=== PATIENT | female | born 1980 | race Caucasian/White ===

== ENCOUNTER 2018-08-28 00:32 | Emergency (ER) | payer SELFPAY ==
[~2018-08-28] VITALS: Ht 167.6 cm; Wt 86.2 kg
[2018-08-28 00:45] VITALS: BP_SYST 162
[2018-08-28] MEDS ORDERED: LORazepam 2 MG/ML VIAL (FOR ER USE) IVP ONE (01:15)
[2018-08-28] MEDS: NACL 0.9% 1,000 ML IV ONE (01:17)
[2018-08-28 01:45] LABS: CALCIUM 8.7 mg/dL (8.4-11.0); CREATININE 0.62 mg/dL (0.55-1.30); POTASSIUM 3.9 mmol/L (3.5-5.1)
[2018-08-28 01:50] LABS: INR 0.9 (0.8-1.2); PROTHROMBIN TIME 9.5 SECS (9.5-12.5)
[2018-08-28 01:57] LABS: ALBUMIN 3.2 g/dL (3.4-4.8); TOTAL BILIRUBIN 0.1 mg/dL (0.0-1.0)
[2018-08-28 02:16] LABS: BASOPHILS % (AUTO) 0.5 % (0.0-2.0); EOSINOPHILS # (AUTO) 0.1 K/uL (0.0-0.4); EOSINOPHILS % (AUTO) 0.9 % (0.0-4.0); HEMATOCRIT 34.9 % (36-48); HEMOGLOBIN 11.7 g/dL (12.0-16.0); LYMPHOCYTES # (AUTO) 2.7 K/uL (1.0-5.5); LYMPHOCYTES % (AUTO) 37.6 % (20.5-51.5); MEAN CORPUSCULAR HEMOGLOBIN 30 pg (27-31); MEAN CORPUSCULAR HGB CONC 34 % (32-36); MEAN CORPUSCULAR VOLUME 90 fL (79.0-98.0); MONOCYTES # (AUTO) 0.6 K/uL (0.0-1.0); MONOCYTES % (AUTO) 8.8 % (1.7-9.3); NEUTROPHILS # (AUTO) 3.7 K/uL (1.8-7.7); NEUTROPHILS % (AUTO) 52.2 % (40.0-70.0); PLATELET COUNT (AUTO) 336 K/uL (130-430); RED BLOOD CELL COUNT(AUTO) 3.89 MIL/uL (4.2-6.2); RED CELL DISTRIBUTION WIDTH 12.6 % (9.0-15.0); WHITE BLOOD COUNT (AUTO) 7.1 K/uL (4.8-10.8)
[2018-08-28 03:03] VITALS: BP_SYST 145
== END 2018-08-28 03:03 | disposition home or self-care (01) ==
LOC: SED 00:32
DX: N92.0 Excessive and frequent menstruation with regular cycle (principal); N93.9 Abnormal uterine and vaginal bleeding, unspecified; F41.9 Anxiety disorder, unspecified; R03.0 Elevated blood-pressure reading, without diagnosis of hypertension
CPT/HCPCS: 36415; 76830; 76857; 80053; 84702; 85025; 85610; 85730; 86901; 99284; J7030; 96360

== ENCOUNTER 2018-08-30 06:18 | Inpatient (IN) | payer MEDICAID ==
[2018-08-30] VITALS (11 sets, daily range): BP systolic 85–115
[~2018-08-30] VITALS: Ht 167.6 cm; Wt 82.6 kg
--- NOTE | 2018-08-30 06:20 | NUR ---
Patient to ER bed 7 to gown for evaluation. Side rails up.
--- NOTE | 2018-08-30 06:25 | NUR ---
Pt wheeled into ED c/o vaginal bleeding. Pt was seen here a few nights ago for similar issue. Pt was prescribed Premarin but was unable to get prescription due to medication being expensive. Pt states she feels really weak and states "this is not my period." Pt is pale and diaphoretic. Pt was placed on child monitor. No other injuries/complaints per patient or noted.
--- NOTE | 2018-08-30 06:26 | NUR ---
ER Dr. Vinson at bedside examining patient.
[2018-08-30] MEDS ORDERED: NACL 0.9% 1,000 ML IV ONE ×3 (06:45→07:15)
[2018-08-30 06:58] LABS: BASOPHILS % (AUTO) 0.3 % (0.0-2.0); EOSINOPHILS # (AUTO) 0.1 K/uL (0.0-0.4); EOSINOPHILS % (AUTO) 0.7 % (0.0-4.0); HEMATOCRIT 23.2 % (36-48); HEMOGLOBIN 7.7 g/dL (12.0-16.0); LYMPHOCYTES # (AUTO) 3.4 K/uL (1.0-5.5); LYMPHOCYTES % (AUTO) 39.2 % (20.5-51.5); MEAN CORPUSCULAR HEMOGLOBIN 30 pg (27-31); MEAN CORPUSCULAR HGB CONC 33 % (32-36); MEAN CORPUSCULAR VOLUME 90 fL (79.0-98.0); MONOCYTES # (AUTO) 0.7 K/uL (0.0-1.0); MONOCYTES % (AUTO) 7.8 % (1.7-9.3); NEUTROPHILS # (AUTO) 4.5 K/uL (1.8-7.7); PLATELET COUNT (AUTO) 301 K/uL (130-430); RED BLOOD CELL COUNT(AUTO) 2.58 MIL/uL (4.2-6.2); RED CELL DISTRIBUTION WIDTH 12.6 % (9.0-15.0); WHITE BLOOD COUNT (AUTO) 8.6 K/uL (4.8-10.8)
--- NOTE | 2018-08-30 07:01 | NUR ---
Pt verbalized she does not take any prescribed medications at the moment.
[2018-08-30 07:08] LABS: CALCIUM 8.4 mg/dL (8.4-11.0); CREATININE 0.82 mg/dL (0.55-1.30); POTASSIUM 3.6 mmol/L (3.5-5.1)
[2018-08-30 07:10] LABS: INR 0.9 (0.8-1.2); PROTHROMBIN TIME 9.5 SECS (9.5-12.5)
[2018-08-30 07:13] LABS: ALBUMIN 2.9 g/dL (3.4-4.8); TOTAL BILIRUBIN 0.3 mg/dL (0.0-1.0)
[2018-08-30] MEDS ORDERED: ACETAMINOPHEN 500 MG TABLET PO ONE (08:00)
[2018-08-30] MEDS ORDERED: DIPHENHYDRAMINE HCL 25 MG CAPSULE PO ONE (08:00)
--- NOTE | 2018-08-30 08:19 | NUR ---
ADMISSION NOTE Received patient from ER via milo, received report from MILA EUBANKS. Patient admitted with diagnosis of VAGINAL BLEEDING. Patient oriented to hospital routine, call light, toileting and safety-patient verbalized understanding. Addendum: 08/30/18 at 0830 by Joey Coleman RN ADMIT TIME 0830
[2018-08-30] MEDS ORDERED: NORETHINDRONE ACETATE 5 MG TABLET PO ONE (08:30)
--- NOTE | 2018-08-30 08:38 | NUR ---
Patient will be admitted to care of DR KO. Admitted to MED SURGE unit. Will go to room 124B. Belongings list completed. Summary report printed. Report given at bedside. Transfered to [facility]. IV present no sign or symptom of infiltration.
[2018-08-30] MEDS: LR 1,000 ML IV SCH ×2 (08:54→16:00)
--- NOTE | 2018-08-30 09:00 | NUR ---
OPENING NOTE patient is resting in bed, a&oX4, assessment completed, educated electrical controls designer light system and plan of care, patient verbalized understanding, patient complaining of low back pain, no signs of respiratory distress, IV fluids started per MD order, educated patient on the need for blood transfusion for today, patient verbalized understanding, IV line clean with no signs of infiltration, bed in the lowest position, three side rails up, call light within reach, bed alarm on, fall/safety precautions in place.
--- NOTE | 2018-08-30 09:51 | NUR ---
BT INITIATION: Consent signed per patient agreeing to administration of blood. Blood has been type and crossmatched. Blood sent from blood bank. Information on unit of blood checked against patient wristband at bedside by two nurses. All information matches. Patient or responsible alliance party informed of potential complications associated with blood transfusion. Informed of possible transfusion reaction symptoms. Aware of need to notify nurse at once of itching, shortness of breath, flushing, feeling of impending doom, or other symptoms not previously present. Vital signs taken within 5 minutes prior to initiation of transfusion. RN will remain with patient for first 15 minutes of transfusion at which time vital signs will be re-assessed.
--- NOTE | 2018-08-30 10:35 | NUR ---
PATIENT OFF UNIT heading to the OR.
[2018-08-30] MEDS ORDERED: MIDAZOLAM HCL 5 MG/5 ML VIAL IVP ONE (10:45)
[2018-08-30] MEDS ORDERED: DOXYCYCLINE HYCLATE 100 MG VIAL IV ONE (10:45)
[2018-08-30] MEDS ORDERED: IBUP-1971 PO (11:18)
[2018-08-30] MEDS ORDERED: NORG1TAB10 PO (11:20)
[2018-08-30] MEDS ORDERED: KETOROLAC TROMETHAMINE 30 MG VIAL IM PRN (11:30)
[2018-08-30] MEDS ORDERED: ONDANSETRON HCL 4 MG/2 ML VIAL IVP PRN ×2 (11:30→12:00)
[2018-08-30] MEDS ORDERED: fentaNYL CITRATE/PF 100 MCG/2 ML AMP IVP PRN ×2 (12:00)
[2018-08-30] MEDS ORDERED: HYDROmorphone 2 MG/ML VIAL IVP ONE (12:15)
[2018-08-30] MEDS ORDERED: MIDAZOLAM HCL 2 MG/2 ML VIAL (VERSED) ONE (12:24)
[2018-08-30] MEDS ORDERED: ONDANSETRON HCL 4 MG/2 ML VIAL ONE (12:24)
--- NOTE | 2018-08-30 13:15 | NUR ---
PATIENT BACK ON UNIT FROM THE OR, RECEIVING HER SECOND UNIT OF PRBCS.
--- NOTE | 2018-08-30 14:55 | NUR ---
Blood transfusion done patient is resting in bed, no pain reported, no signs of respiratory distress, will continue to monitor, fall/safety precautions in place.
--- NOTE | 2018-08-30 16:28 | NUR ---
rounds patient is resting in bed, eyes closed, breathing easy and nonlabored, no other needs addressed at this time, fall/safety precautions in place.
--- NOTE | 2018-08-30 18:48 | NUR ---
closing note patient is resting in bed, family at the bedside, patient demonstrated use of incentive spirometer and went up to 1999, no other needs addressed at this time, began discharge education on patient, patient states she still feels weak, will endorse report to noc shift nurse about completing discharge once patient feels more stable to go home tonight, fall/safety precautions in place.
--- NOTE | 2018-08-30 20:44 | NUR ---
DISCHARGE Pt AAOx4, VSS, pt family at bedside. Discharged home. IV L. AC discontinued, catheter tip intact, no bleeding noted. Pt denies any pain, dizziness or bleeding. Pt instructed to call 911 if fever, sob, dizziness, bleeding. Verbalized understanding. All belongings with pt.
== END 2018-08-30 20:40 | disposition home or self-care (01) | DRG 513 ==
LOC: SED 06:18 → SMU 07:54
PROVIDERS: ADMIT Obstetrics & Gynecology; ATTEND Obstetrics & Gynecology
PROC: 0UB98ZZ Excision of Uterus, Via Natural or Artificial Opening Endoscopic (ICD-10-PCS; 2018-08-30)
PROC: 0UDB8ZZ Extraction of Endometrium, Via Natural or Artificial Opening Endoscopic (ICD-10-PCS; 2018-08-30)
PROC: 30233N1 Transfusion of Nonautologous Red Blood Cells into Peripheral Vein, Percutaneous Approach (ICD-10-PCS; principal; 2018-08-30 11:00)
DX: N93.9 Abnormal uterine and vaginal bleeding, unspecified (principal); E87.1 Hypo-osmolality and hyponatremia; D64.9 Anemia, unspecified; N84.0 Polyp of corpus uteri; E86.1 Hypovolemia; F41.9 Anxiety disorder, unspecified
CPT/HCPCS: 36415; 80053; 84703; 85025; 85610-TC; 85730-TC; 86886; 86900; 86901; 86920; 87081; 88305; 94010; 96360; 99285; J2250; J2405; J3465; J3490; J7030; J7050; J7120; P9021; Q0163

== ENCOUNTER 2018-11-01 00:35 | Inpatient (IN) | payer MEDICAID ==
[~2018-11-01] VITALS: Ht 167.6 cm; Wt 86.6 kg
[2018-11-01] VITALS (7 sets, daily range): BP systolic 113–128
[~2018-11-01 00:35] MED LIST: IBUP-1971 PO; NORG1TAB10 PO
--- NOTE | 2018-11-01 00:40 | NUR ---
Patient to ER bed 02 to gown for evaluation. Side rails up. Report given to RAIMUNDO Hi.
[2018-11-01] MEDS ORDERED: NACL 0.9% 1,000 ML IV ONE ×2 (01:02→04:00)
--- NOTE | 2018-11-01 01:05 | NUR ---
Dr. Vinson bedside for Pt eval
--- NOTE | 2018-11-01 01:10 | NUR ---
Pt BIB family to ED C/O lower abdominal pain associated with nausea, diarrhea and dysuria that started on Tuesday. The Pt reports that she has also had felt more thirsty than usual. She reports that she has a history of D & C procedure 2 months ago but didn't not follow up as directed. She reports that she tried taking Miralax thinking that she was constipated with no relief. Last bowel movement was 2 days ago. She reports that she feels like her vagina is swollen and is worried that a tampon/flex ring is stuck inside. Last menstrual period was last week and was heavier than normal. No other injuries and or complaints noted. VSS no s/s of acute distress. Resting on gurney with rails up
[2018-11-01 01:15] LABS: BILIRUBIN,URINE NEGATIVE (NEGATIVE); CLARITY/URINE CLEAR (CLEAR); COLOR,URINE YELLOW (YELLOW); GLUCOSE,URINE NEGATIVE (NEGATIVE); KETONES,URINE TRACE (NEGATIVE); LEUKOCYTE ESTERASE ,URINE 1+ (NEGATIVE); NITRITE, URINE NEGATIVE (NEGATIVE); PROTEIN URINE NEGATIVE (NEGATIVE); UROBILINOGEN,URINE 0.2 (0.2-1.0)
[2018-11-01] MEDS ORDERED: ONDANSETRON HCL 4 MG/2 ML VIAL IVP ONE (01:15)
[2018-11-01] MEDS ORDERED: MORPHINE 4 MG/ML INJ. SYRINGE IVP ONE (01:15)
[2018-11-01] MEDS ORDERED: DIPHENHYDRAMINE INJ 50 MG/ML VIAL IVP ONE (01:15)
--- NOTE | 2018-11-01 01:15 | NUR ---
Pt taken to Radiology in stable condition
[2018-11-01 01:18] LABS: BLOOD, URINE TRACE (NEGATIVE)
[2018-11-01 01:20] LABS: BACTERIA,URINE FEW /HPF (None Seen)
--- NOTE | 2018-11-01 01:30 | NUR ---
Pt back from Radiology well tolerated
[2018-11-01 01:41] LABS: BASOPHILS # (AUTO) 0.1 K/uL (0.0-0.2); BASOPHILS % (AUTO) 0.4 % (0.0-2.0); EOSINOPHILS # (AUTO) 0.1 K/uL (0.0-0.4); EOSINOPHILS % (AUTO) 0.4 % (0.0-4.0); HEMATOCRIT 27.7 % (36-48); HEMOGLOBIN 8.7 g/dL (12.0-16.0); LYMPHOCYTES # (AUTO) 1.5 K/uL (1.0-5.5); LYMPHOCYTES % (AUTO) 11.6 % (20.5-51.5); MEAN CORPUSCULAR HEMOGLOBIN 24 pg (27-31); MEAN CORPUSCULAR HGB CONC 32 % (32-36); MEAN CORPUSCULAR VOLUME 76 fL (79.0-98.0); MONOCYTES # (AUTO) 0.9 K/uL (0.0-1.0); MONOCYTES % (AUTO) 6.4 % (1.7-9.3); NEUTROPHILS # (AUTO) 10.8 K/uL (1.8-7.7); NEUTROPHILS % (AUTO) 81.2 % (40.0-70.0); PLATELET COUNT (AUTO) 440 K/uL (130-430); RED BLOOD CELL COUNT(AUTO) 3.67 MIL/uL (4.2-6.2); RED CELL DISTRIBUTION WIDTH 17.6 % (9.0-15.0); WHITE BLOOD COUNT (AUTO) 13.3 K/uL (4.8-10.8)
[2018-11-01 01:56] LABS: CREATININE 0.69 mg/dL (0.55-1.30); POTASSIUM 3.9 mmol/L (3.5-5.1)
[2018-11-01 02:01] LABS: ALBUMIN 3.2 g/dL (3.4-4.8); TOTAL BILIRUBIN 0.5 mg/dL (0.0-1.0)
--- NOTE | 2018-11-01 02:30 | NUR ---
Pt put on IV Antibiotics therapy, blood cx's sent prior
[2018-11-01] MEDS ORDERED: ALPRAZolam 0.25 MG TABLET PO ONE (03:00)
[2018-11-01] MEDS ORDERED: cefTRIAXone 1 GM IVPB PREMIX 50 ML IV ONE (03:15)
[2018-11-01] MEDS ORDERED: metroNIDAZOLE 500 MG TABLET PO ONE (03:15)
--- NOTE | 2018-11-01 03:22 | NUR ---
End of life care decisions discussed with patient by Dr. Vinson. Opportunity for questions and concerns addressed. Patient's code status is FULL CODE paperwork completed and placed in chart.
[2018-11-01] MEDS ORDERED: CIPROFLOXACIN LACT 400 MG/D5W 200 ML IV ONE (03:30)
[2018-11-01] MEDS ORDERED: ONDANSETRON HCL 4 MG/2 ML VIAL IVP PRN ×2 (03:45→09:45)
[2018-11-01] MEDS ORDERED: MORPHINE 2 MG/ML INJ. SYRINGE IVP PRN (03:45)
--- NOTE | 2018-11-01 04:06 | NUR ---
Patient will be admitted to care of Dr. Acharya. Admitted to Medsurg unit. Will go to room 114. Belongings list completed. Summary report printed. Report will be given at bedside.
--- NOTE | 2018-11-01 04:06 | NUR ---
ADMISSION NOTE Received patient from ER via rdelano under the care of Dr. Acharya. Patient admitted with diagnosis of Abdominal Pain. Patient is awake, alert, oriented X 4. Patient oriented to hospital room, call light, toileting, pain management and safety-teach back done. Patient informed that her nurse will be Kemar and that her room number is 114B. Call light within reach. Will continue to monitor patient condition.
--- NOTE | 2018-11-01 04:54 | NUR ---
PAIN Patient complained of abdominal pain. PRN medication to be administered.
--- NOTE | 2018-11-01 05:46 | NUR ---
CONSULT REASON FOR CONSULT: ABD PAIN PERSON I SPOKE WITH: ANNALISA CONSULTING PHYSICIAN: DR. MORGAN MAINTENANCE SERVICE TECHNICIAN PHONE NUMBRE: [phone] ORDERING PHYSICIAN: DR. HECTOR
--- NOTE | 2018-11-01 06:40 | NUR ---
CLOSING NOTE Patient in bed sleeping at this time. No s/s of acute distress noted. Breathing even and unlabored. IVF infusing well. IV site patent, no signs of infiltration or infection noted. Bedside commode present at bedside. All needs met throughout shift. Fall and safety precautions maintained throughout shift. Will continue to monitor until patient care is endorsed to oncoming dayshift nurse.
--- NOTE | 2018-11-01 08:02 | NUR ---
OPENING NOTE patient resting in bed with eyes closed, patient easily arousable to name, patient denies any acute distress or pain, breathing is even and unlabored on room air, IVF infusing as ordered, educated patient on plan of care and call light system, will continue to monitor, safety precautions in place, call light within reach.
[2018-11-01] MEDS: MORPHINE 4 MG/ML INJ. SYRINGE IVP PRN ×3 (09:22→20:59)
[2018-11-01] MEDS ORDERED: METOCLOPRAMIDE HCL 10 MG/2 ML VIAL IVP PRN (09:45)
[2018-11-01] MEDS: metroNIDAZOLE 500 mg/NS 100 ML IV SCH ×3 (10:09→21:00)
--- NOTE | 2018-11-01 10:22 | NUR ---
CONSULTATION PAGED/CALLED Reason for Consultation: [] ABDOMINAL PAIN Person Who was Notified: [] NOREEN Consulting Physician: [] DR Chantelle HERRING WAREHOUSE SUPERVISOR FOR DR KEE Cooking Casing And Drying Supervisor Specialty: [] GI Ordering Physician: [] DR Daron HECTOR
[2018-11-01] MEDS: LEVOFLOXACIN 500 MG/D5W 100 ML IV SCH (11:11)
--- NOTE | 2018-11-01 12:30 | NUR ---
SPOKE TO DR NEVAEH SOLER MADE AWARE OF CT ABDOMEN RESULTS, ORDERED A TAP WATER ENEMA.
--- NOTE | 2018-11-01 13:07 | NUR ---
TAP WATER ENEMA DONE NO SIGNS OF STOOL AFTER HALF BAG OF ENEMA WAS DONE, PATIENT STATED SHE IS HAVING SIDE PAIN WHICH IS NOT ALLOWING HER TO PUSH, WILL NOTIFY MD.
--- NOTE | 2018-11-01 14:50 | NUR ---
PAGED DR HERRING FOR A SECOND TIME, AWAITING MD TO CALL BACK.
--- NOTE | 2018-11-01 15:10 | NUR ---
MD ROUNDS Dr. Gonzalez assessed patient in room, MD aware of tap water enema not helping much, MD stated to continue to monitor.
--- NOTE | 2018-11-01 16:45 | NUR ---
NOTES assisted patient to ambulate around the floor, patient still stating she is having pain in her right side, breathing is even and unlabored on room air, IVF infusing as ordered, mother at bedside, will continue to monitor, safety precautions in place, call light within reach.
[2018-11-01] MEDS: D5NS 1,000 ML IV SCH (17:30)
[2018-11-01] MEDS: METOCLOPRAMIDE HCL 10 MG/2 ML VIAL IVP SCH (17:30)
--- NOTE | 2018-11-01 18:54 | NUR ---
CLOSING NOTE patient ambulating around floor at this time, no acute distress or pain noted, patient had a loose bowel movement, breathing is even and unlabored on room air, IVF infusing as ordered, all needs were met throughout shift, patient resting in bed now, will endorse report to oncoming nurse, safety precautions in place, mother at bedside, call light within reach.
--- NOTE | 2018-11-01 19:41 | NUR ---
Opening notes Received report. Patient resting in bed. No signs of distress noted. Breathing even and unlabored. IV patent and intact, infusing fluids. Patient states my abdominal pain has gone down a bit. Patient wants water. Informed patient she is too have nothing by mouth. Patient verbalized understanding. Provided patient with mouth swabs to keep mouth from getting dry. No other needs. Call light with the patient. Safety precautions in place.
--- NOTE | 2018-11-01 22:30 | NUR ---
Sleeping Patient sleeping. No signs of distress noted. Breathing even and unlabored. IV patent and intact, infusing fluids. Safety precautions in place.
[2018-11-02] MEDS: METOCLOPRAMIDE HCL 10 MG/2 ML VIAL IVP SCH ×4 (00:19→17:56)
[2018-11-02] MEDS: KETOROLAC TROMETHAMINE 15 MG VIAL IM SCH ×5 (00:20→17:56)
--- NOTE | 2018-11-02 01:44 | NUR ---
Hygiene care Patient complains of being hot and sweating. Hygiene care and new gown provided. Patient states pain is tolerable right now. Ice chips provided. No other needs. Call light with the patient. Safety precautions in place.
--- NOTE | 2018-11-02 03:30 | NUR ---
Sleeping No signs of distress noted. Breathing even and unlabored. IV patent and intact. Safety precautions in place.
[2018-11-02] MEDS: D5NS 1,000 ML IV SCH ×3 (05:29→22:52)
--- NOTE | 2018-11-02 05:30 | NUR ---
IV infiltrated IV unable to flush and site is red. Will reinsert new IV. Scheduled medications not given at this time.
[2018-11-02] MEDS: metroNIDAZOLE 500 mg/NS 100 ML IV SCH ×3 (05:31→22:52)
[2018-11-02 06:27] LABS: BASOPHILS % (AUTO) 0.5 % (0.0-2.0); EOSINOPHILS # (AUTO) 0.1 K/uL (0.0-0.4); EOSINOPHILS % (AUTO) 0.8 % (0.0-4.0); HEMATOCRIT 27.8 % (36-48); HEMOGLOBIN 8.6 g/dL (12.0-16.0); LYMPHOCYTES # (AUTO) 1.8 K/uL (1.0-5.5); LYMPHOCYTES % (AUTO) 23.2 % (20.5-51.5); MEAN CORPUSCULAR HEMOGLOBIN 24 pg (27-31); MEAN CORPUSCULAR HGB CONC 31 % (32-36); MEAN CORPUSCULAR VOLUME 76 fL (79.0-98.0); MONOCYTES # (AUTO) 0.9 K/uL (0.0-1.0); MONOCYTES % (AUTO) 11.2 % (1.7-9.3); NEUTROPHILS # (AUTO) 5.1 K/uL (1.8-7.7); NEUTROPHILS % (AUTO) 64.3 % (40.0-70.0); PLATELET COUNT (AUTO) 426 K/uL (130-430); RED BLOOD CELL COUNT(AUTO) 3.64 MIL/uL (4.2-6.2); RED CELL DISTRIBUTION WIDTH 17.6 % (9.0-15.0); WHITE BLOOD COUNT (AUTO) 7.9 K/uL (4.8-10.8)
--- NOTE | 2018-11-02 06:55 | NUR ---
Nutrition Update Ehsan Scale 18 noted. Pt admitted for Abdominal Pain Diet: NPO BMI: 30.8 kg/m2 RD to follow per nutrition care standards.
--- NOTE | 2018-11-02 07:00 | NUR ---
Closing notes Patient asleep in bed. New IV was inserted into to left hand 22 gauge. Medications given. No signs of distress noted. Breathing even and unlabored. All needs met throughout the shift. Call light with the patient. Safety precautions in place. Will endorse care to day shift RN.
[2018-11-02 07:10] LABS: ALBUMIN 2.6 g/dL (3.4-4.8); CALCIUM 8.7 mg/dL (8.4-11.0); CREATININE 0.71 mg/dL (0.55-1.30); POTASSIUM 4.2 mmol/L (3.5-5.1); TOTAL BILIRUBIN 0.3 mg/dL (0.0-1.0)
--- NOTE | 2018-11-02 08:02 | NUR ---
OPENING NOTE patient resting in bed A&O x4, patient denies any acute distress or pain, breathing is even and unlabored on room air, IVF infusing as ordered, educated patient on plan of care and call light system, will continue to monitor, safety precautions in place, call light within reach.
[2018-11-02 08:49] VITALS: BP_SYST 108
[2018-11-02] MEDS: LEVOFLOXACIN 500 MG/D5W 100 ML IV SCH (08:56)
[2018-11-02] MEDS ORDERED: IOHEXOL 100 ML IV ONE (09:31)
[2018-11-02] MEDS ORDERED: DIATR MEGLU/DIATRIZ SOD 30 ML SOLUTION PO ONE (09:31)
--- NOTE | 2018-11-02 10:45 | NUR ---
NOTES patient is ambulating around floor at this time, patient denies any acute distress or pain, breathing is even and unlabored on room air, IVF infusing as ordered, will continue to monitor, safety precautions in place.
--- NOTE | 2018-11-02 12:10 | NUR ---
NOTES patient is resting in bed with eyes closed, patient denies any acute distress or pain, breathing is even and unlabored on room air, IVF infusing as ordered, will continue to monitor, safety precautions in place, call light within reach.
[2018-11-02 12:25] VITALS: BP_SYST 120
--- NOTE | 2018-11-02 14:55 | NUR ---
NOTES patient is resting in bed watching tv, patient denies any acute distress, no pain at this time, breathing is even and unlabored on room air, IVF infusing as ordered, will continue to monitor, safety precautions in place, call light within reach.
[2018-11-02] MEDS: MORPHINE 4 MG/ML INJ. SYRINGE IVP PRN (15:29)
[2018-11-02 16:18] VITALS: BP_SYST 141
--- NOTE | 2018-11-02 16:50 | NUR ---
NOTES patient is resting in bed with eyes closed, breathing is even and unlabored on room air, no acute distress or pain noted at this time, will continue to monitor, safety precautions in place, call light within reach.
--- NOTE | 2018-11-02 18:44 | NUR ---
CLOSING NOTE patient off the floor for ultra sound at this time, all needs were met throughout shift, will endorse report to oncoming nurse, safety precautions in place, mother at bedside.
[2018-11-02] MEDS ORDERED: POLYETHYLENE GLYCOL 3350, 17 GM/ POWD.PACK PO ONE (19:30)
--- NOTE | 2018-11-02 19:38 | NUR ---
Opening notes Received report. Patient resting in bed. No signs of distress noted. Breathing even and unlabored. Patient states she feels much better than yesterday. IV patent and intact. Dr. Mota at bedside, examining patient. New orders implemented. No needs at this time. Call light with the patient. Safety precautions in place. Mother at bedside.
[2018-11-02 20:14] VITALS: BP_SYST 141
[2018-11-02] MEDS: KETOROLAC TROMETHAMINE 15 MG VIAL IVP PRN (20:16)
--- NOTE | 2018-11-02 20:30 | NUR ---
Medications scheduled and prn pain medications given. Educated the action and side effects of medications. Patient verbalized understanding and tolerated well. No signs of allergic reaction noted. Provided patient with new gown per patient request. No other needs. Call light with the patient. Safety precautions in place.
--- NOTE | 2018-11-02 21:30 | NUR ---
Medications given. Educated the action and side effects of medications. Patient verbalized understanding and tolerated well. No signs of allergic reaction. Patient has temperature of 100.5. Patient refused Tylenol and cooling measures applied. No other needs. Call light with the patient. Safety precautions in place. Caregiver at bedside. Addendum: 11/02/18 at 2339 by Tammy Castrejon RN CHARTED ON WRONG PATIENT.
[2018-11-02 22:07] LABS: CHLAMYDIA TRACHOMATIS NAA Negative (Negative)
--- NOTE | 2018-11-02 22:30 | NUR ---
Sleeping No signs of distress noted. Breathing even and unlabored. IV patent and intact, infusing fluids. Call light with the patient. Safety precautions in place.
[2018-11-03] MEDS: METOCLOPRAMIDE HCL 10 MG/2 ML VIAL IVP SCH ×3 (00:14→14:03)
[2018-11-03 00:41] VITALS: BP_SYST 118
--- NOTE | 2018-11-03 01:00 | NUR ---
Resting Patient resting comfortably in bed. No signs of distress noted. Breathing even and unlabored. IV patent and intact, infusing fluids. Call light with the patient. Safety precautions in place.
--- NOTE | 2018-11-03 03:05 | NUR ---
Sleeping No signs of distress noted. Breathing even and unlabored. Call light with the patient. Safety precautions in place.
[2018-11-03] MEDS: metroNIDAZOLE 500 mg/NS 100 ML IV SCH ×2 (05:52→14:04)
[2018-11-03] MEDS: KETOROLAC TROMETHAMINE 15 MG VIAL IVP PRN (05:53)
--- NOTE | 2018-11-03 06:47 | NUR ---
Closing notes Patient resting in bed. Scheduled and prn medications given. Educated the action and side effects of medications. Patient verbalized understanding and tolerated well. No signs of allergic reaction noted. All needs met throughout the shift. Call light with the patient. Safety precautions in place. Will endorse care to day shift RN.
--- NOTE | 2018-11-03 08:45 | NUR ---
CONSULTATION PAGED REASON FOR CONSULTATION:PELVIC PAIN WAS CONSULT CALLED?Y PERSON WHO WAS NOTIFIED:ROSAURA CONSULTING PHYSICIAN:SHIRA CHURCH SAMUEL(SUKHDEEP STERLING CUSTOM MILLER) FUR REMODELER SPECIALTY:CHEMICAL LAB SUPERVISOR FUR REMODELER PHONE NUMBER:[phone] REQUESTING PHYSICIAN:VERONICA FRENCH
[2018-11-03] MEDS ORDERED: POLYETHYLENE GLYCOL 3350, 17 GM/ POWD.PACK PO SCH (09:00)
[2018-11-03] MEDS: LEVOFLOXACIN 500 MG/D5W 100 ML IV SCH (10:58)
--- NOTE | 2018-11-03 12:24 | NUR ---
Stereo Plotter Operator Note At patient request, CONTRACT ADMINISTRATION COORDINATOR provided a note that she was in the hospital for her father to bring to work. Patient was tearful stating she wanted to go home and did not want further work up. She had questions regarding her diet and medications. CONTRACT ADMINISTRATION COORDINATOR asked Kimberley EUBANKS, charge nurse to follow up with patient.
--- NOTE | 2018-11-03 12:52 | NUR ---
ROUNDS PATIENT IN BED CRYING WANTING TO GO HOME. PER PATIENT SHE FEELS BETTER. SHE DOESN'T HAVE ABDOMINAL PAIN, SHE ALREADY MOVED BOWELS THIS AM AND SHE HAS SEEN ALL THE DOCTORS LISTED ON THE BOARD. SHE WANTS TO GO HOME. SHE CANNOT TAKE CLEAR LIQUID DIET ANYMORE. ADVISED PATIENT THAT RN WILL CALL MD TO ADVANCE DIET, IF MD AGREES, WILL PATIENT STAY. PATIENT STATED THAT SHE WILL ONLY TRY SOLID FOOD. PAGED DR HECTOR. AWAITS CALL BACK
--- NOTE | 2018-11-03 13:19 | NUR ---
DIET SW DR HECTOR WHO WANTS THE PATIENT TO WAIT FOR DR SILVA (ob). INFORMED THE PATIENT WHO BECAME UPSET, ASKED WHY. EDUCATED PATIENT THAT DR SILVA MIGHT SCHEDULE A PROCEDURE. PATIENT NOW IS DECIDED TO GO HOME AGAINTS [facility]. WHILE SIGNING PAPERS AT THE STATION, DR SILVA CAME. WALKED PATIENT BACK TO THE ROOM. EXAMINED BY DR SILVA WITH FOOT WORKER PRESENT. MD ADVISED PATIENT THAT HE WILL NOT DO ANY PROCEDURE AND THATPATIENT MAY HAVE DIET. HE INFORMED THE PATIENT THAT HE ( dr silva ) will talk to Dr Hector. Patient verbalized understanding and decided to stay
[2018-11-03] MEDS: D5NS 1,000 ML IV SCH (14:13)
[2018-11-03 14:39] VITALS: BP_SYST 127
[2018-11-03 16:34] VITALS: BP_SYST 125
--- NOTE | 2018-11-03 16:49 | NUR ---
At the beginning of the shift pt in bed resting quietly,room air,call light in reach,BSC,pt told to call for assistance,will monitor. during the day pt awake,alert,anxious,adm. meds as ordered,fall prec.,pt had visitors on and off. restarted iv site to continue with IV Tx. Pt. has order to be D/C home if tolerates soft diet,pt had soft diet for lunch with no c/o N/V,pt will be discharge home.
[2018-11-03 16:57] VITALS: BP_SYST 125
--- NOTE | 2018-11-03 18:37 | NUR ---
1720 pt alert,oriented,no c/o discharged home with family.
[2018-11-04] MEDS ORDERED: POLYETHYLENE GLYCOL 3350, 17 GM/ POWD.PACK PO SCH (09:00)
[2018-11-10 10:04] LABS: NEISSERIA GONORRHOEAE NAA Positive (Negative)
--- NOTE | 2018-11-10 10:19 | NUR ---
RECEIVED +GONORRHOEAE FROM LAB AND ATTEMPTED TO CALL AT GIVEN NUMBER , LEFT MESSAGE FOR PT TO RETURN CALL.
== END 2018-11-03 17:20 | disposition home or self-care (01) | DRG 531 ==
LOC: SED 00:35 → SMU 03:43
PROVIDERS: ADMIT Internal Medicine Hospice and Palliative Medicine; ATTEND Internal Medicine Hospice and Palliative Medicine
DX: N76.0 Acute vaginitis (principal); D64.9 Anemia, unspecified; N83.209 Unspecified ovarian cyst, unspecified side; K52.9 Noninfective gastroenteritis and colitis, unspecified; N39.0 Urinary tract infection, site not specified; B96.89 Other specified bacterial agents as the cause of diseases classified elsewhere; K59.00 Constipation, unspecified; F41.9 Anxiety disorder, unspecified; K42.9 Umbilical hernia without obstruction or gangrene; Z79.899 Other long term (current) drug therapy
CPT/HCPCS: 36415; 76830-TC; 76857; 80053; 81000-TC; 83605; 83690-TC; 85025; 87040-TC; 87045-TC; 87046; 87070-TC; 87086; 87210-TC; 87491; 87591; 89055; 96361; 96365; 96375; 99285; J0696; J0744; J1200; J1885; J1956; J2270; J2405; J2765; J3490; J7030; J7042; Q9964; Q9967

== ENCOUNTER 2019-09-10 23:01 | Emergency (ER) | payer MEDICAID ==
[~2019-09-10] VITALS: Ht 167.6 cm; Wt 77.1 kg
[2019-09-10 23:05] VITALS: BP_SYST 147
--- NOTE | 2019-09-10 23:07 | NUR ---
Patient to ER bed 6 to gown for evaluation. Side rails up. Report given to GEO EUBANKS.
--- NOTE | 2019-09-10 23:12 | NUR ---
Patient brought complaining of sudden onset acute left flank pain radiating to the back since 7 pm. patient reports that she was at [facility] when this occured and she cracked her back. Pain 10/10. Patient report has history of kidney stones. Reports having 4 episodes of non bloody emesis self induced. No other complaints/injuries per patient or as noted. Will continue to monitor.
[2019-09-10] MEDS ORDERED: KETOROLAC TROMETHAMINE 30 MG VIAL IVP ONE (23:15)
--- NOTE | 2019-09-10 23:17 | NUR ---
ER Dr. Schmid at bedside examining patient.
--- NOTE | 2019-09-10 23:18 | NUR ---
Patient visualized inducing vomiting. md notified
[2019-09-10] MEDS ORDERED: ONDANSETRON HCL 4 MG/2 ML VIAL IVP ONE (23:30)
[2019-09-10] MEDS ORDERED: NACL 0.9% 1,000 ML IV ONE (23:30)
--- NOTE | 2019-09-10 23:35 | NUR ---
# 18 gauge angiocath placed to lac. Use of asceptic technique. Opsite placed over site. Blood return noted. Blood for lab drawn from site. Flushed with 10 cc of normal saline. No evidence of infiltration noted. Patient tolerated well.
[2019-09-11 00:19] LABS: BASOPHILS % (AUTO) 0.1 % (0.0-2.0); EOSINOPHILS % (AUTO) 0.4 % (0.0-4.0); HEMOGLOBIN 11.7 g/dL (12.0-16.0); LYMPHOCYTES # (AUTO) 1.4 K/uL (1.0-5.5); LYMPHOCYTES % (AUTO) 15.4 % (20.5-51.5); MEAN CORPUSCULAR HEMOGLOBIN 26 pg (27-31); MEAN CORPUSCULAR HGB CONC 33 % (32-36); MEAN CORPUSCULAR VOLUME 80 fL (79.0-98.0); MONOCYTES # (AUTO) 0.4 K/uL (0.0-1.0); MONOCYTES % (AUTO) 4.8 % (1.7-9.3); NEUTROPHILS # (AUTO) 7.2 K/uL (1.8-7.7); NEUTROPHILS % (AUTO) 79.3 % (40.0-70.0); PLATELET COUNT (AUTO) 375 K/uL (130-430); RED BLOOD CELL COUNT(AUTO) 4.48 MIL/uL (4.2-6.2); RED CELL DISTRIBUTION WIDTH 15.7 % (9.0-15.0)
[2019-09-11 00:25] LABS: CALCIUM 9.1 mg/dL (8.4-11.0); CREATININE 0.99 mg/dL (0.55-1.30); POTASSIUM 3.6 mmol/L (3.5-5.1)
[2019-09-11 00:36] LABS: ALBUMIN 3.9 g/dL (3.4-4.8); TOTAL BILIRUBIN 0.3 mg/dL (0.0-1.0)
[2019-09-11 02:04] LABS: BILIRUBIN,URINE NEGATIVE (NEGATIVE); BLOOD, URINE 3+ (NEGATIVE); CLARITY/URINE CLOUDY (CLEAR); COLOR,URINE YELLOW (YELLOW); GLUCOSE,URINE NEGATIVE (NEGATIVE); KETONES,URINE NEGATIVE (NEGATIVE); LEUKOCYTE ESTERASE ,URINE NEGATIVE (NEGATIVE); NITRITE, URINE NEGATIVE (NEGATIVE); PROTEIN URINE 1+ (NEGATIVE); UROBILINOGEN,URINE 0.2 (0.2-1.0)
[2019-09-11 02:34] LABS: BACTERIA,URINE FEW /HPF (None Seen); RBC,URINE 20-50 /HPF (0-3); WBC,URINE 0-3 /HPF (0-3); YEAST,URINE Few /HPF (None Seen)
[2019-09-11 02:53] VITALS: BP_SYST 139
--- NOTE | 2019-09-11 02:53 | NUR ---
Patient given written and verbal discharge instructions and verbalizes understanding. ER MD discussed with patient the results and treatment provided. Patient in stable condition. ID arm band removed. IV catheter removed intact and dressing applied, no active bleeding. Rx of Geddes and Zofran given. Patient educated on pain management and to follow up with PMD. Pain Scale 0/10 Opportunity for questions provided and answered. Medication side effect fact sheet provided.
== END 2019-09-11 02:53 | disposition home or self-care (01) ==
LOC: SED 23:01
DX: R10.9 Unspecified abdominal pain (principal); R11.10 Vomiting, unspecified
CPT/HCPCS: 36415; 76770; 80053; 81000; 81025; 83690; 84702; 85025; 87086; 96361; 96374; 96375; 99284; J1885; J2405; J7030

== ENCOUNTER 2022-02-05 00:05 | Emergency (ER) | payer MEDICAID ==
[~2022-02-05] VITALS: Ht 167.6 cm; Wt 81.6 kg
[2022-02-05 00:08] VITALS: BP_SYST 132
--- NOTE | 2022-02-05 00:30 | NUR ---
Pt c/o painful boil to left buttock near anus x3 days. C/o multiple skin infections, right eye infection, and thick nasal mucus for past 2 months. Pt expressed concern that infections r/t having unprotected sex with multiple partners. Pt noted crying in triage d/t pain. Pt taken to bed 5 and helped get undressed and into gown. Report given to Dr. Caputo and Tia EUBANKS.
--- NOTE | 2022-02-05 00:50 | NUR ---
ELVA Ramsey at bedside examining patient.
[2022-02-05] MEDS ORDERED: PIPERACILLIN/TAZO 3.375 GM in NS 50 ML IV ONE (01:00)
[2022-02-05] MEDS ORDERED: ONDANSETRON HCL 4 MG/2 ML VIAL IVP ONE ×2 (01:00)
[2022-02-05] MEDS ORDERED: NACL 0.9% 1,000 ML IV ONE (01:00)
[2022-02-05] MEDS ORDERED: metroNIDAZOLE 500 mg/NS 100 ML IV ONE (01:00)
[2022-02-05] MEDS ORDERED: MORPHINE SULFATE 10 MG/ML VIAL IM ONE (01:00)
[2022-02-05] MEDS ORDERED: IBUPROFEN 600 MG TABLET PO ONE (01:30)
--- NOTE | 2022-02-05 01:50 | NUR ---
# 22 gauge angiocath placed to R WRIST. Use of asceptic technique. Opsite placed over site. Blood return noted. Flushed with 10 cc of normal saline. No evidence of infiltration noted. Patient tolerated well.
[2022-02-05 01:56] LABS: BILIRUBIN,URINE NEGATIVE (NEGATIVE); BLOOD, URINE 2+ (NEGATIVE); CLARITY/URINE CLEAR (CLEAR); COLOR,URINE YELLOW (YELLOW); GLUCOSE,URINE NEGATIVE (NEGATIVE); KETONES,URINE TRACE (NEGATIVE); LEUKOCYTE ESTERASE ,URINE NEGATIVE (NEGATIVE); NITRITE, URINE NEGATIVE (NEGATIVE); PROTEIN URINE NEGATIVE (NEGATIVE); UROBILINOGEN,URINE 0.2 (0.2-1.0)
[2022-02-05 01:58] LABS: BASOPHILS % (AUTO) 0.4 % (0.0-2.0); EOSINOPHILS # (AUTO) 0.1 K/uL (0.0-0.4); EOSINOPHILS % (AUTO) 1.2 % (0.0-4.0); HEMATOCRIT 36.8 % (36-48); LYMPHOCYTES % (AUTO) 21.4 % (20.5-51.5); MEAN CORPUSCULAR VOLUME 89 fL (79.0-98.0); MONOCYTES # (AUTO) 0.8 K/uL (0.0-1.0); MONOCYTES % (AUTO) 8.7 % (1.7-9.3); NEUTROPHILS # (AUTO) 6.4 K/uL (1.8-7.7); NEUTROPHILS % (AUTO) 68.3 % (40.0-70.0); PLATELET COUNT (AUTO) 268 K/uL (130-430); RED BLOOD CELL COUNT(AUTO) 4.14 MIL/uL (4.2-6.2); RED CELL DISTRIBUTION WIDTH 13.1 % (9.0-15.0); WHITE BLOOD COUNT (AUTO) 9.3 K/uL (4.8-10.8)
[2022-02-05 02:13] LABS: CREATININE 0.88 mg/dL (0.55-1.30); POTASSIUM 3.9 mmol/L (3.5-5.1)
[2022-02-05 02:19] LABS: ALBUMIN 3.5 g/dL (3.4-4.8); C-REACTIVE PROTEIN QUANT 1.3 mg/dL (0-0.5); TOTAL BILIRUBIN 0.4 mg/dL (0.0-1.0)
[2022-02-05] MEDS ORDERED: PIPERACILLIN/TAZOBACTAM 3.375 GM/VIAL (ZOSYN) IV ONE (02:31)
[2022-02-05 02:43] LABS: RBC,URINE 0-3 /HPF (0-3)
[2022-02-05 02:44] LABS: BACTERIA,URINE None Seen /HPF (None Seen); MUCUS,URINE None Seen /LPF (None Seen); WBC,URINE NONE SEEN /HPF (0-3)
[2022-02-05 03:23] LABS: ERYTHROCYTE SEDIMENTATION RATE 16 MM/HR (0-20)
--- NOTE | 2022-02-05 04:15 | NUR ---
I&D Procedure done by Dr Caputo to L buttock using sterile technique. Lidocaine 2% w/Epi used. Wound packed with Iodoform packing strip . Adaptic, 4x4 and ean to wound. Mild amt of bleeding noted. Wound care discussed w/ patient. Pt tolerated procedure well.
[2022-02-05] MEDS ORDERED: LIDOCAINE/EPI 2% 1:100000 20 ML VIAL INJ ONE ×2 (05:07→05:15)
[2022-02-05] MEDS ORDERED: IBUP-1969 PO (06:18)
[2022-02-05] MEDS ORDERED: AUG875 PO (06:18)
[2022-02-05 06:27] VITALS: BP_SYST 130
--- NOTE | 2022-02-05 06:33 | NUR ---
Patient given written and verbal discharge instructions and verbalizes understanding. ER MD discussed with patient the results and treatment provided. Patient in stable condition. ID arm band removed. IV catheter removed intact and dressing applied, no active bleeding. Patient educated on pain management and to follow up with PMD. Opportunity for questions provided and answered. Medication side effect fact sheet provided.
== END 2022-02-05 06:33 | disposition home or self-care (01) ==
LOC: SED 00:05
DX: K61.0 Anal abscess (principal); Z79.899 Other long term (current) drug therapy
CPT/HCPCS: 46050; 99285; 74177; 96365; 96367; 96375; 80053; 81000; 83690; 85025; 85651; 86140; 87040; 36415; 76376; 81025; 87491; 83605; J3490; J2405; J2543; J2270; Q9967

== ENCOUNTER 2022-07-31 04:33 | Emergency (ER) | payer MEDICAID ==
[~2022-07-31] VITALS: Ht 167.6 cm; Wt 96.2 kg
[~2022-07-31 04:33] MED LIST changes: +AUG875 PO; +IBUP-1969 PO; -IBUP-1971 PO; -NORG1TAB10 PO
[2022-07-31 04:41] VITALS: BP_SYST 129
--- NOTE | 2022-07-31 04:41 | NUR ---
Triaged and placed patient to ER bed 6 for evaluation. Report given to Joni RN for continuity of care. Bed placed in lowest position with side rails up. Instructed to notify ED staff for any changes in condition or worsening of symptoms while waiting to be seen by a provider. Patient verbalized understanding.
[2022-07-31] MEDS ORDERED: NACL 0.9% 1,000 ML IV ONE ×2 (05:00→05:45)
[2022-07-31] MEDS ORDERED: ONDANSETRON HCL 4 MG/2 ML VIAL IVP ONE (05:00)
--- NOTE | 2022-07-31 05:00 | NUR ---
Dr. Renner at bedside examining the patient.
[2022-07-31] MEDS ORDERED: KETOROLAC TROMETHAMINE 30 MG VIAL IVP ONE (05:15)
[2022-07-31] MEDS ORDERED: IBUP-1971 PO (05:57)
[2022-07-31] MEDS ORDERED: LOPE2CAP PO (05:57)
[2022-07-31] MEDS ORDERED: CIPR-260 PO (05:57)
[2022-07-31] MEDS ORDERED: ONDA8TAB60 PO (05:57)
[2022-07-31 06:08] VITALS: BP_SYST 221
== END 2022-07-31 06:08 | disposition home or self-care (01) ==
LOC: SED 04:33
DX: R10.13 Epigastric pain (principal); R11.2 Nausea with vomiting, unspecified; R19.7 Diarrhea, unspecified; E11.9 Type 2 diabetes mellitus without complications; Z79.899 Other long term (current) drug therapy
CPT/HCPCS: 99284; 96374; 96361; 96375; J1885; J2405; J7030